=== PATIENT | male | born 1965 | race Caucasian/White ===

== ENCOUNTER 2019-09-17 18:19 | Inpatient (IN) ==
[2019-09-17] MEDS ORDERED: Aspirin 81 MG TAB.CHEW PO ONE (18:37)
[2019-09-17 19:14] LABS: Basophils # 0.1 K/mcL (0.0-0.2); Basophils % 0.8 %; Eosinophils # 0.2 K/mcL (0.0-0.6); Eosinophils % 2.2 %; Hemoglobin 14.9 g/dL (12.9-16.9); Immature Granulocytes % 0.6 % (0-4); Lymphocytes # 1.5 K/mcL (0.6-4.6); Lymphocytes % 17.6 %; Mean Corpuscular HGB Conc 33.1 g/dL (31.6-35.5); Mean Corpuscular Hemoglobin 29.7 pg (28.0-33.3); Mean Corpuscular Volume 89.6 fL (83.0-100.0); Mean Platelet Volume 9.7 fL (9.4-12.4); Monocytes # 0.6 K/mcL (0.0-1.3); Monocytes % 6.8 %; Neutrophils # 6.1 K/mcL (1.6-8.9); Platelet Count 227 K/mcL (140-400); Red Blood Count 5.02 M/mcL (4.19-5.50); Red Cell Distribution Width 14.7 % (11.5-14.5); White Blood Count 8.5 K/mcL (4.3-11.1)
[2019-09-17 19:20] LABS: Prothrombin Time 11.4 Seconds (9.4-12.1)
[2019-09-17 19:23] LABS: Activated Partial Thrombo Time 29.7 Seconds (26.0-36.0)
[2019-09-17 19:34] LABS: BUN/Creatinine Ratio 27 (6-26); Blood Urea Nitrogen 36 mg/dL (6-20); Calcium 9.8 mg/dL (8.6-10.3); Carbon Dioxide 20 mEq/L (23-29); Chloride 104 mEq/L (98-107); Glucose 174 mg/dL (70-105); Osmolality,Calculated 291 (280-300); Potassium 4.2 mEq/L (3.5-5.1); Sodium 134 mEq/L (136-145); eGFR For African Americans > 60 (> 60); eGFR For Non-African Americans 57 (> 60)
[2019-09-17 19:39] LABS: Troponin I 0.33 ng/mL (< 0.04)
[2019-09-17] MEDS ORDERED: *HR* Heparin 5,000 UNIT/ML VIAL IVP PRN (21:28)
[2019-09-17] MEDS ORDERED: *HR* Heparin 5,000 UNIT/ML VIAL IVP ONE (21:28)
[2019-09-17] MEDS ORDERED: Ondansetron 4 MG/2 ML VIAL IVP PRN (21:30)
[2019-09-17] MEDS ORDERED: Naloxone 0.4 MG/ML INJ IVP PRN (21:30)
[2019-09-17] MEDS: Heparin 25,000 UNIT/250 ML D5W 25,000 UNIT/250 ML IV.SOLN IVC SCH (21:58)
[2019-09-17] MEDS ORDERED: *HR* HYDROcodone/Acet 5/325 mg TABLET PO PRN (22:05)
[2019-09-17] MEDS ORDERED: *HR* Dextrose 50 % in Water (Syg) 50 ML SYRINGE IVP PRN (22:07)
[2019-09-17] MEDS ORDERED: Dextrose Gel 15 GM/37.5 ML TUBE PO PRN ×2 (22:07)
[2019-09-17] MEDS ORDERED: D5% in Water 1,000 ML IVC PRN (22:07)
[2019-09-17] MEDS ORDERED: 0.9 % Sodium Chloride 250 ML IVC ONE (22:25)
[2019-09-18 03:56] LABS: Basophils # 0.1 K/mcL (0.0-0.2); Basophils % 0.9 %; Eosinophils # 0.3 K/mcL (0.0-0.6); Eosinophils % 3.1 %; Hematocrit 46.3 % (37.5-50.1); Hemoglobin 14.8 g/dL (12.9-16.9); Immature Granulocytes % 0.2 % (0-4); Lymphocytes # 2.7 K/mcL (0.6-4.6); Lymphocytes % 32.7 %; Mean Corpuscular Hemoglobin 29.4 pg (28.0-33.3); Mean Platelet Volume 9.9 fL (9.4-12.4); Monocytes # 0.7 K/mcL (0.0-1.3); Monocytes % 8.1 %; Neutrophils # 4.5 K/mcL (1.6-8.9); Platelet Count 239 K/mcL (140-400); Red Blood Count 5.03 M/mcL (4.19-5.50); Red Cell Distribution Width 14.9 % (11.5-14.5); White Blood Count 8.2 K/mcL (4.3-11.1)
[2019-09-18 04:16] LABS: BUN/Creatinine Ratio 24 (6-26); Blood Urea Nitrogen 32 mg/dL (6-20); Calcium 9.4 mg/dL (8.6-10.3); Carbon Dioxide 23 mEq/L (23-29); Chloride 103 mEq/L (98-107); Glucose 169 mg/dL (70-105); Magnesium 2.1 mg/dL (1.6-2.6); Osmolality,Calculated 291 (280-300); Phosphorous 3.7 mg/dL (2.7-4.5); Potassium 4.2 mEq/L (3.5-5.1); Sodium 135 mEq/L (136-145); eGFR For African Americans > 60 (> 60); eGFR For Non-African Americans 57 (> 60)
[2019-09-18] MEDS: *HR* Heparin 5,000 UNIT/ML VIAL IVP PRN ×2 (04:22→11:26)
[2019-09-18] MEDS: Aspirin Enteric Coated 81 MG Tablet PO SCH (08:37)
[2019-09-18] MEDS: lisinopriL 5 MG TABLET PO SCH (08:38)
[2019-09-18] MEDS: Metoprolol XL (24 HR) Succ 50 MG TAB.ER.24H PO SCH (08:38)
[2019-09-18] MEDS: Fenofibrate 54 MG TABLET PO SCH (08:38)
[2019-09-18] MEDS: Insulin LISPRO 300 UNITS/3 ML VIAL SQ SCH ×4 (08:38→19:55)
[2019-09-18] MEDS ORDERED: Furosemide 40 MG TABLET PO SCH (09:00)
[2019-09-18] MEDS ORDERED: Aspirin 81 MG TAB.CHEW PO SCH (09:00)
[2019-09-18] MEDS ORDERED: Perflutren Lipid Microsphere 1.3 ML in 0.9 % Sodium Chloride 8.7 ML IVP ONE (09:39)
[2019-09-18 11:40] LABS: Estimated Average Glucose 146 mg/dl
[2019-09-18] MEDS ORDERED: Amiodarone Premix 150 MG/100 ML BAG IVPB ONE (14:04)
[2019-09-18] MEDS ORDERED: Amiodarone Premix 360 MG/200 ML BAG IVC ONE (14:30)
[2019-09-18] MEDS: Heparin 25,000 UNIT/250 ML D5W 25,000 UNIT/250 ML IV.SOLN IVC SCH (20:11)
[2019-09-18] MEDS: Amiodarone Premix 360 MG/200 ML BAG IVC SCH (20:50)
[2019-09-18] MEDS ORDERED: Metoprolol XL (24 HR) Succ 50 MG TAB.ER.24H PO ONE (21:00)
[2019-09-19 00:37] LABS: Basophils # 0.1 K/mcL (0.0-0.2); Basophils % 0.9 %; Eosinophils # 0.3 K/mcL (0.0-0.6); Eosinophils % 3.3 %; Hematocrit 45.2 % (37.5-50.1); Hemoglobin 14.8 g/dL (12.9-16.9); Immature Granulocytes % 0.5 % (0-4); Lymphocytes # 2.4 K/mcL (0.6-4.6); Lymphocytes % 31.8 %; Mean Corpuscular HGB Conc 32.7 g/dL (31.6-35.5); Mean Corpuscular Hemoglobin 29.4 pg (28.0-33.3); Mean Corpuscular Volume 89.9 fL (83.0-100.0); Mean Platelet Volume 10.1 fL (9.4-12.4); Monocytes # 0.6 K/mcL (0.0-1.3); Monocytes % 7.9 %; Neutrophils # 4.2 K/mcL (1.6-8.9); Platelet Count 221 K/mcL (140-400); Red Blood Count 5.03 M/mcL (4.19-5.50); Red Cell Distribution Width 14.6 % (11.5-14.5); Segmented Neutrophils % 55.6 %; White Blood Count 7.6 K/mcL (4.3-11.1)
[2019-09-19 00:50] LABS: BUN/Creatinine Ratio 21 (6-26); Blood Urea Nitrogen 21 mg/dL (6-20); Calcium 9.5 mg/dL (8.6-10.3); Carbon Dioxide 21 mEq/L (23-29); Chloride 105 mEq/L (98-107); Glucose 195 mg/dL (70-105); Magnesium 2.2 mg/dL (1.6-2.6); Osmolality,Calculated 284 (280-300); Potassium 3.9 mEq/L (3.5-5.1); Sodium 133 mEq/L (136-145); eGFR For African Americans > 60 (> 60); eGFR For Non-African Americans > 60 (> 60)
[2019-09-19] MEDS: Insulin LISPRO 300 UNITS/3 ML VIAL SQ SCH ×4 (08:20→21:10)
[2019-09-19] MEDS: Amiodarone Premix 360 MG/200 ML BAG IVC SCH ×2 (10:23→23:27)
[2019-09-19] MEDS: Metoprolol XL (24 HR) Succ 50 MG TAB.ER.24H PO SCH ×2 (11:02→20:31)
[2019-09-19] MEDS: lisinopriL 5 MG TABLET PO SCH (11:02)
[2019-09-19] MEDS: Aspirin Enteric Coated 81 MG Tablet PO SCH (11:02)
[2019-09-19] MEDS: Fenofibrate 54 MG TABLET PO SCH (11:02)
[2019-09-19] MEDS: Apixaban 5 MG TABLET PO SCH ×2 (12:24→20:31)
[2019-09-20] MEDS: Apixaban 5 MG TABLET PO SCH (07:40)
[2019-09-20] MEDS: Fenofibrate 54 MG TABLET PO SCH (07:41)
[2019-09-20] MEDS: Metoprolol XL (24 HR) Succ 50 MG TAB.ER.24H PO SCH (07:41)
[2019-09-20] MEDS: lisinopriL 5 MG TABLET PO SCH (07:41)
[2019-09-20] MEDS: Insulin LISPRO 300 UNITS/3 ML VIAL SQ SCH ×2 (07:47→11:44)
[2019-09-20] MEDS ORDERED: *HR* Amiodarone 200 MG TABLET PO SCH (09:00)
[2019-09-20 11:34] VITALS: BP 107/66
== END 2019-09-20 14:19 | disposition home or self-care (01) | DRG 281 ==
LOC: 2ANU 18:19 → EMEROOARM 18:19 → SUATTDRO 21:36 → 2ANU 22:17 → ICNU 09-18 14:22 → SUATTDRO 09-18 15:00 → 2NNU 09-19 12:47
PROVIDERS: ADMIT Student in an Organized Health Care Education/Training Program; ATTEND Internal Medicine